=== PATIENT | female | born 1955 | race Caucasian/White ===

== ENCOUNTER → 2023-09-02 15:02 | Outpatient (REF) | payer OTHER, SELFPAY ==
--- NOTE | 2023-08-31 13:06 | CM ---
Patient is scheduled for lumbar spine surgery on 09/22/23. Spoke with patient prior to surgery via telephone. Introduced role of the Orthopedic Navigator. Patient reports that she lives with her in a multi story home. There are three steps to
enter and patient has a first floor set up. She currently functions independently. She has a cane and crutches. She has never had VN services. PCP is Lavern Guadalupe.
Discussed orthopedic program, post surgical plans and tentative plan for patient to return home when directed by surgeon. Patient is in agreement with tentative plan and will have support from her when she goes home.
Per surgical reservation sheet from Dr. Astorga's office, patient does not need a brace.
Plan: Orthopedic Navigator will remain available to assist with the care of patient and will reassess discharge needs after surgery.
[2023-09-02 12:29] VITALS: BMI 28.8
[2023-09-02 12:35] VITALS: BMI 28.8
[2023-09-02 12:56] LABS: Hematocrit 45.3 % (37.0-47.0); Hemoglobin 15.3 g/dL (12.0-16.0); Mean Corp Hgb Conc. 33.8 g/dL (33.0-37.0); Mean Corpuscular Hgb 30.1 pg (27.0-31.0); Mean Corpuscular Volume 89.2 fL (81.0-99.0); Mean Platelet Volume 10.8 fL (7.4-10.4); Platelet Count 252 10^3/uL (130-400); Red Blood Cell Count 5.08 10^6/uL (4.20-5.40); Red Cell Dist. Width 12.1 % (11.5-14.5); White Blood Cell Count 5.7 10^3/uL (4.8-10.8)
[2023-09-02 13:14] LABS: ALT (SGPT) 23 U/L (0-35); AST (SGOT) 32 U/L (14-36); Albumin 4.9 g/dl (3.5-5.0); Alkaline Phosphatase 64 U/L (38-126); Blood Urea Nitrogen 19 mg/dl (7-17); Calcium 10.1 mg/dl (8.4-10.2); Carbon Dioxide 29 mmol/L (22-30); Chloride 99 mmol/L (98-107); Estimated Creatinine Clearance 73 ml/min; Glucose 86 mg/dl (70-99); Potassium 4.2 mmol/L (3.5-5.1); Sodium 136 mmol/L (135-145); Total Bilirubin 0.7 mg/dl (0.2-1.3); Total Protein 7.5 g/dl (6.3-8.2); eGFR > 60.00
== END ==
LOC: SDSPAT 15:02
PROVIDERS: ATTENDING PHYSICIAN Orthopaedic Surgery Orthopaedic Surgery of the Spine; FAMILY PHYSICIAN Internal Medicine; OTHER PHYSICIAN Orthopaedic Surgery
DX: M48.062 Spinal stenosis, lumbar region with neurogenic claudication (principal)
CPT/HCPCS: 36415; 80053; 85027; 87070; 93005

== ENCOUNTER → 2023-11-24 10:23 | Outpatient (REF) | payer OTHER, SELFPAY | LOC: RAD 10:23 | PROVIDERS: ATTENDING PHYSICIAN Internal Medicine Cardiovascular Disease; FAMILY PHYSICIAN Internal Medicine | DX: I10 Essential (primary) hypertension (principal); R07.9 Chest pain, unspecified; R94.39 Abnormal result of other cardiovascular function study | CPT/HCPCS: 75574; Q9967 ==

== ENCOUNTER 2023-12-17 06:49 | Day surgery (SDC) | payer OTHER, SELFPAY ==
[2023-12-17] VITALS (7 sets, daily range): BP systolic 124–160; BP diastolic 65–85; BMI 29.3
[2023-12-17 07:38] LABS: Hemoglobin 15.3 g/dL (12.0-16.0); Mean Corp Hgb Conc. 33.3 g/dL (33.0-37.0); Mean Corpuscular Hgb 28.9 pg (27.0-31.0); Mean Platelet Volume 10.4 fL (7.4-10.4); Platelet Count 250 10^3/uL (130-400); Red Blood Cell Count 5.29 10^6/uL (4.20-5.40); Red Cell Dist. Width 12.8 % (11.5-14.5); White Blood Cell Count 6.2 10^3/uL (4.8-10.8)
[2023-12-17] MEDS: NSS 278 ML IV (07:50)
[2023-12-17 07:51] LABS: Blood Urea Nitrogen 27 mg/dl (7-17); Calcium 10.5 mg/dl (8.4-10.2); Carbon Dioxide 31 mmol/L (22-30); Chloride 103 mmol/L (98-107); Estimated Creatinine Clearance 67 ml/min; Glucose 71 mg/dl (70-99); Potassium 4.5 mmol/L (3.5-5.1); Sodium 143 mmol/L (135-145); eGFR > 60.00
[2023-12-17] MEDS: LOW STRENGTH ASPIRIN 324 MG PO (07:55)
--- NOTE | 2023-12-17 09:21 | ITS.CL.CATH ---
Administrative Secretary - Catheterization
Cardiac Catheterization
Procedure Report:
LEFT HEART CATHETERIZATION
Date of Procedure: December 17, 2023
Referring: Dr. Jacky Garcia
PROCEDURES:
1. Left heart catheterization with coronary and single-plane left ventriculography
INDICATION: Palpitations, mildly abnormal stress test and CT scan with coronary calcium score of 48 with EF of 44%. Echocardiogram and nuclear stress EF's were estimated within normal range.
ACCESS: Right radial artery, 6 [place] sheath
HEMODYNAMICS : (mmHg)
AO (s/d) : 137/75
LV (s/d) : 179/15
LVEDP : 29
CORONARY FINDINGS
DOMINANCE: Right
LEFT MAIN: Normal
LEFT ANTERIOR DESCENDING: Normal
CIRCUMFLEX: Normal
RIGHT CORONARY ARTERY: Normal
VENTRICULOGRAPHY: Left ventriculography was performed in [place] projection. The digital single-plane left ventricular ejection fraction is visually estimated at 55%
RADIATION SUMMARY: Fluoro Time (min): 4.1, Dose (mGy): 148, DAP (Gy.cm2) : 11.3
Closure Device: TR band
CONCLUSIONS
1. Normal coronary artery
2. Preserved left ventricular systolic function
RECOMMENDATIONS
1. Continue guideline directed medical therapy for blood pressure and lipid control
Copy to: Dr. Jacky Garcia
== END 2023-12-17 11:55 | disposition home or self-care (01) ==
LOC: CATH 06:49
PROVIDERS: ATTENDING PHYSICIAN Internal Medicine Interventional Cardiology; FAMILY PHYSICIAN Internal Medicine; OTHER PHYSICIAN Internal Medicine Cardiovascular Disease
DX: R07.9 Chest pain, unspecified (principal); R94.39 Abnormal result of other cardiovascular function study; R06.02 Shortness of breath; I10 Essential (primary) hypertension; E78.5 Hyperlipidemia, unspecified; K76.0 Fatty (change of) liver, not elsewhere classified; Z87.891 Personal history of nicotine dependence; Z82.49 Family history of ischemic heart disease and other diseases of the circulatory system
CPT/HCPCS: 80048; 85027; 93458; C1894; Q9967

== ENCOUNTER → 2024-05-11 10:46 | Outpatient (REF) | payer OTHER, SELFPAY | LOC: HWRAD 10:46 | PROVIDERS: ATTENDING PHYSICIAN Obstetrics & Gynecology; FAMILY PHYSICIAN Internal Medicine | DX: Z13.820 Encounter for screening for osteoporosis (principal); Z78.0 Asymptomatic menopausal state; Z12.31 Encounter for screening mammogram for malignant neoplasm of breast | CPT/HCPCS: 77063; 77067; 77080 ==

== ENCOUNTER → 2024-07-08 13:18 | Outpatient (REF) | payer OTHER, SELFPAY | LOC: MRI 3T 13:18 | PROVIDERS: ATTENDING PHYSICIAN Orthopaedic Surgery; FAMILY PHYSICIAN Internal Medicine | DX: M54.16 Radiculopathy, lumbar region (principal); M51.16 Intervertebral disc disorders with radiculopathy, lumbar region | CPT/HCPCS: 72148 ==

== ENCOUNTER → 2024-08-08 12:08 | Outpatient (REF) | payer OTHER, SELFPAY | LOC: MRI 3T 12:08 | PROVIDERS: ATTENDING PHYSICIAN Orthopaedic Surgery; FAMILY PHYSICIAN Internal Medicine | DX: M54.12 Radiculopathy, cervical region (principal); M47.812 Spondylosis without myelopathy or radiculopathy, cervical region | CPT/HCPCS: 72141 ==

== ENCOUNTER → 2025-09-01 11:03 | Outpatient (REF) | payer OTHER, SELFPAY | LOC: MRI 3T 11:03 | PROVIDERS: ATTENDING PHYSICIAN Orthopaedic Surgery; FAMILY PHYSICIAN Internal Medicine; REFERRING PHYSICIAN Orthopaedic Surgery Orthopaedic Surgery of the Spine | DX: M41.26 Other idiopathic scoliosis, lumbar region (principal) | CPT/HCPCS: 72148 ==